=== PATIENT | male | born 1970 | race Caucasian/White ===

== ENCOUNTER 2018-11-22 04:38 | Emergency (ER) | payer OTHER ==
[2018-11-22] MEDS ORDERED: IPRATROPIUM/ALBUTEROL 3 ML NEB INH STA (05:19)
[2018-11-22] MEDS ORDERED: BENZONATATE 100 MG CAPSULE PO STA (05:19)
[2018-11-22] MEDS ORDERED: DEXAMETHASONE 10 MG/ML VIAL PO STA (05:19)
[2018-11-22] MEDS ORDERED: ACETAMINOPHEN 500 MG TABLET PO STA (05:20)
--- NOTE | 2018-11-22 05:23 | ED Physician Documentation ---
History of Present Illness - Stated complaint Stated Complaint: CHEST CONGESTION,FEVER - Chief complaint Chief Complaint: General - History obtained from History obtained from: Patient - Additonal information Additional information: 48-year-old male presents the emergency department with day 3 of Body aches, nasal congestion, cough and feeling feverish. The patient smokes 1 pack of cigarettes a day and reports wheezing and general fatigue. No relieving factors. No other associated symptoms. Symptoms are described as mild. Review of Systems Constitutional: reports: Fever, Chills, Myalgias, Fatigue Eyes: denies: Discharge Ears: denies: Ear pain Nose: reports: Rhinorrhea / runny nose Throat: denies: Sore throat Cardiac: denies: Chest pain / pressure Respiratory: reports: Cough, Wheezing. denies: Dyspnea GI: denies: Abdominal Pain : denies: Dysuria Skin: denies: Rash Musculoskeletal: denies: Neck pain Neurologic: denies: Generalized weakness Immunocompromised: denies: Chemotherapy PD PAST MEDICAL HISTORY - Past Medical History Past Medical History: No Cardiovascular: None Respiratory: None Neuro: None Endocrine/Autoimmune: None GI: None : None HEENT: None Psych: None Musculoskeletal: None Derm: None - Past Surgical History Past Surgical History: Yes General: Other Ortho: Rotator cuff repair - Present Medications Home Medications: Ambulatory Orders Medication Instructions Recorded Confirmed Albuterol Sulf [Ventolin Hfa 1 - 2 puffs INH Q4HR PRN #1 inhaler 11/22/18 Inhaler] Benzonatate [Tessalon Perle] 100 - 200 mg PO TID PRN #30 capsule 11/22/18 - Allergies Allergies/Adverse Reactions: Allergies Allergy/AdvReac Type Severity Reaction Status Date / Time No Known Drug Allergies Allergy Verified 11/22/18 04:48 - Social History Does the pt smoke?: Yes Smoking Status: Current every day smoker Does the pt drink ETOH?: No Does the pt have substance abuse?: No - Immunizations Immunizations are current?: No - POLST Patient has POLST: No PD ED PE NORMAL - General General: Alert and oriented X 3, No acute distress - HEENT HEENT: Atraumatic, PERRL, EOMI, Ears normal, Moist mucous membranes - Neck Neck: Supple, no meningeal sign - Cardiac Cardiac: RRR, Strong equal pulses - Respiratory Respiratory: No respiratory distress. No: Clear bilaterally (Scattered expiratory wheezing) - Derm Derm: Normal color - Extremities Extremities: No deformity - Neuro Neuro: Alert and oriented X 3, Normal speech - Psych Psych: Normal affect Results - Vitals Vitals: Vital Signs - 24 hr 11/22/18 04:45 Temperature 37.2 C Heart Rate 109 H Respiratory 17 Rate Blood Pressure 135/82 H O2 Saturation 95 Oxygen O2 Source Room air PD MEDICAL DECISION MAKING - ED course ED course: The patient's symptoms are consistent with a viral etiology and the patient appears appropriate for discharge and ongoing outpatient management. I discussed warning signs and recommended returning for any worsening or any concerns Departure - Departure Disposition: 01 Home, Self Care Clinical Impression: Bronchitis Condition: Good Instructions: ED Upper Resp Infec No Abx Tx Ch, Bronchitis Acute Dc Prescriptions: Albuterol Sulf [Ventolin Hfa Inhaler] 1 - 2 puffs INH Q4HR PRN #1 inhaler PRN Reason: Shortness Of Air/Wheezing Benzonatate [Tessalon Perle] 100 - 200 mg PO TID PRN #30 capsule PRN Reason: Cough Comments: Please return to the ED for worsening symptoms or any concerns Please follow up with Primary care
[2018-11-22] MEDS ORDERED: CHERRY SYRUP 10 ML UDC PO ONE (05:31)
[2018-11-22 05:40] VITALS: BP 129/93
== END 2018-11-22 05:47 | disposition home or self-care (01) ==
LOC: ED 04:38
DX: J40 Bronchitis, not specified as acute or chronic (principal); F17.200 Nicotine dependence, unspecified, uncomplicated
CPT/HCPCS: 94640; 94664; 99283; A9270

== ENCOUNTER 2020-04-23 11:50 | Outpatient (CLI) | payer OTHER | END 2020-04-23 11:51 | disposition critical access hospital (66) | LOC: EMS 11:50 | PROVIDERS: ATTEND Surgery | DX: R10.31 Right lower quadrant pain (principal) | CPT/HCPCS: A0425; A0429 ==

== ENCOUNTER 2020-04-23 12:08 | Emergency (ER) | payer OTHER ==
--- NOTE | 2020-04-23 12:52 | ED Physician Documentation ---
History of Present Illness - Stated complaint Stated Complaint: ABD PAIN - Chief complaint Chief Complaint: Abd Pain - History obtained from History obtained from: Patient, EMS - History of Present Illness Timing: Today Pain level max: 8 Pain level now: 2 - Additonal information Additional information: 49-year-old male presents to the emergency department with lower abdominal pain today, mainly in the right lower quadrant. Worse with movement and better with rest. No recent trauma. No injuries. Mild nausea but no vomiting. No diarrhea or constipation. Has never had similar symptoms. No fevers. No recent antibiotics or recent travel. Review of Systems Constitutional: denies: Fever, Chills Respiratory: denies: Cough GI: denies: Vomiting Skin: denies: Rash Musculoskeletal: denies: Neck pain, Back pain Neurologic: denies: Headache PD PAST MEDICAL HISTORY - Past Medical History Past Medical History: Yes Cardiovascular: None Respiratory: None Neuro: None Endocrine/Autoimmune: None GI: None : None HEENT: None Psych: None Musculoskeletal: None Derm: None - Past Surgical History Past Surgical History: Yes General: Other Ortho: Rotator cuff repair - Present Medications Home Medications: Ambulatory Orders Medication Instructions Recorded Confirmed Albuterol Sulf [Ventolin Hfa 1 - 2 puffs INH Q4HR PRN #1 inhaler 11/22/18 Inhaler] Benzonatate [Tessalon Perle] 100 - 200 mg PO TID PRN #30 capsule 11/22/18 Hydrocodone/Acetaminophen 1 - 2 each PO Q6H PRN #14 tablet 04/23/20 [Hydrocodon-Acetaminophen 5-325] Ibuprofen [Motrin] 800 mg PO Q8H PRN #30 tablet 04/23/20 Ondansetron Odt [Zofran] 4 mg TL Q6H PRN #10 tablet 04/23/20 Tamsulosin [Flomax] 0.4 mg PO DAILY #14 capsule 04/23/20 - Allergies Allergies/Adverse Reactions: Allergies Allergy/AdvReac Type Severity Reaction Status Date / Time No Known Drug Allergies Allergy Verified 11/22/18 04:48 - Social History Does the pt smoke?: Yes Smoking Status: Current every day smoker Does the pt drink ETOH?: No Does the pt have substance abuse?: No - Immunizations Immunizations are current?: No - POLST Patient has POLST: No PD ED PE NORMAL - Vitals Vital signs reviewed: Yes - General General: Alert and oriented X 3, No acute distress - HEENT HEENT: Moist mucous membranes - Neck Neck: Supple, no meningeal sign - Cardiac Cardiac: RRR - Respiratory Respiratory: No respiratory distress, Clear bilaterally - Abdomen Abdomen: Soft, Non distended, Other (Tender to palpation right lower quadrant and suprapubic. No peritoneal signs.) - Back Back: No CVA TTP, No spinal TTP - Derm Derm: Warm and dry - Extremities Extremities: No edema, No calf tenderness / cord - Neuro Neuro: Alert and oriented X 3 - Psych Psych: Normal mood, Normal affect Results - Vitals Vitals: Vital Signs - 24 hr 04/23/20 04/23/20 04/23/20 12:12 14:05 16:00 Temperature 36.6 C Heart Rate 81 113 H 75 Respiratory 18 24 23 Rate Blood Pressure 161/115 H 170/115 H 178/104 H O2 Saturation 96 94 96 Oxygen O2 Source Room air - Labs Labs: Laboratory Tests 04/23/20 04/23/20 04/23/20 12:50 12:55 12:55 WBC 11.3 H RBC 5.49 Hgb 16.2 Hct 47.4 MCV 86.3 MCH 29.5 MCHC 34.2 RDW 13.2 Plt Count 188 MPV 11.3 Neut # (Auto) 9.0 H Lymph # (Auto) 1.4 L [place] # (Auto) 0.7 Eos # (Auto) 0.1 Baso # (Auto) 0.1 Absolute Nucleated RBC 0.00 Nucleated RBC % 0.0 Sodium 135 Potassium 3.8 Chloride 102 Carbon Dioxide 24 Anion Gap 9.0 BUN 17 Creatinine 1.1 Estimated GFR (MDRD) 71 L Glucose 152 H Calcium 9.2 Total Bilirubin 0.5 AST 19 ALT 16 Alkaline Phosphatase 78 Total Protein 6.9 Albumin 3.9 Globulin 3.0 Albumin/Globulin Ratio 1.3 Lipase 29 Urine Color YELLOW Urine Clarity CLEAR Urine pH 5.5 Ur Specific [place] 1.025 Urine Protein NEGATIVE Urine Glucose (UA) NEGATIVE Urine Ketones NEGATIVE Urine Occult Blood LARGE H Urine Nitrite NEGATIVE Urine Bilirubin NEGATIVE Urine Urobilinogen 0.2 (NORMAL) Ur Leukocyte Esterase NEGATIVE Urine RBC 11-25 H Urine WBC 0-3 Ur Squamous Epith Cells NONE SEEN Urine Crystals 0-2 Calcium Oxalate Urine Bacteria Few Ur Microscopic Review INDICATED Urine Culture Comments NOT INDICATED - Rads (name of study) CT abd/pelvis Radiology: Prelim report reviewed, EMP read contemporaneously, See rad report RUQ US Radiology: Prelim report reviewed, EMP read contemporaneously, See rad report PD MEDICAL DECISION MAKING - ED course Complexity details: reviewed results, re-evaluated patient, considered differential, d/w patient ED course: 49-year-old male with a right ureteral stone. Declines pain medication here. Will prescribe pain medication and Flomax for home. Abnormal gallbladder on CT scan, therefore ultrasound was performed. He will follow-up with his doctor for further care. Patient is well-appearing, nontoxic. Afebrile. No evidence of sepsis. No evidence of infected stone. Patient counseled regarding signs and symptoms for which I believe and urgent re-evaluation would be necessary. Patient with good understanding of and agreement to plan and is comfortable going home at this time This document was made in part using voice recognition software. While efforts are made to proofread this document, sound alike and grammatical errors may occur. CT A/P 1. Small 3 mm obstructing stone in the proximal right ureter with associated mild right hydronephrosis. 2. Additional small nonobstructing left renal stones. 3. Partially calcified masslike filling defect in the gallbladder fundus. The findings are suspicious for gallbladder carcinoma versus clustered calcified and noncalcified gallstones. The associated mild wall thickening and stricture in the mid gallbladder may reflect an intramural mass versus sequelae of a chronic inflammatory process. Recommend initial further evaluation with ultrasound to assess for possible vascularity within the masslike filling defect. Surgical consultation is also recommended. 4. No evidence of appendicitis. Colonic diverticulosis without acute diverticulitis. RUQ US 1. Contracted gallbladder with multiple gallstones and thickened gallbladder wal l. No other sonographic findings for acute cholecystitis. No vascularity identified in the gallbladder. Findings may represent sequela of chronic cholecystitis. A soft tissue mass is not appreciated on sonographic evaluation. Consider further evaluation with nuclear medicine bone scan. 2. Findings compatible with hepatic steatosis versus chronic hepatocellular disease. Departure - Departure Disposition: 01 Home, Self Care Clinical Impression: Ureteral stone Condition: Good Instructions: ED Stone Renal W Colic Follow-Up: your,doctor in 1 week [Other] Prescriptions: Tamsulosin [Flomax] 0.4 mg PO DAILY #14 capsule Hydrocodone/Acetaminophen [Hydrocodon-Acetaminophen 5-325] 1 - 2 each PO Q6H PRN #14 tablet PRN Reason: pain Ibuprofen [Motrin] 800 mg PO Q8H PRN #30 tablet PRN Reason: PAIN &/OR FEVER Ondansetron Odt [Zofran] 4 mg TL Q6H PRN #10 tablet PRN Reason: Nausea / Vomiting Comments: You should follow-up with your doctor within 1 week. Return if you worsen. The kidney stone should pass. Return for pain that is not controlled, vomiting and/or fever. CT Abdomen/Pelvis 1. Small 3 mm obstructing stone in the proximal right ureter with associated mild right hydronephrosis. 2. Additional small nonobstructing left renal stones. 3. Partially calcified masslike filling defect in the gallbladder fundus. The findings are suspicious for gallbladder carcinoma versus clustered calcified and noncalcified gallstones. The associated mild wall thickening and stricture in the mid gallbladder may reflect an intramural mass versus sequelae of a chronic inflammatory process. Recommend initial further evaluation with ultrasound to assess for possible vascularity within the masslike filling defect. Surgical consultation is also recommended. 4. No evidence of appendicitis. Colonic diverticulosis without acute diverticulitis. Abdomen Ultrasound 1. Contracted gallbladder with multiple gallstones and thickened gallbladder wall. No other sonographic findings for acute cholecystitis. No vascularity identified in the gallbladder. Findings may represent sequela of chronic cholecystitis. A soft tissue mass is not appreciated on sonographic evaluation. Consider further evaluation with nuclear medicine bone scan. 2. Findings compatible with hepatic steatosis versus chronic hepatocellular disease. Discharge Date/Time: 04/23/20 16:55
[2020-04-23 13:04] LABS: BASOPHILS # (AUTO) 0.1 10^3/uL (0.0-0.1); BASOPHILS % (AUTO) 0.6 %; EOSINOPHILS # (AUTO) 0.1 10^3/uL (0.0-0.7); HGB - HEMOGLOBIN 16.2 g/dL (14.0-18.0); LYMPHOCYTES # (AUTO) 1.4 10^3/uL (1.5-3.5); MEAN CORPUSCULAR HEMOGLOBIN 29.5 pg (27.0-31.0); MEAN CORPUSCULAR HGB CONC 34.2 g/dL (32.0-36.0); MEAN CORPUSCULAR VOLUME 86.3 fL (80.0-94.0); MEAN PLATELET VOLUME 11.3 fL (7.4-11.4); MONOCYTES # (AUTO) 0.7 10^3/uL (0.0-1.0); MONOCYTES % (AUTO) 6.5 %; NEUTROPHILS % (AUTO) 79.5 %; PLT - PLATELET COUNT 188 10^3/uL (130-450); RED BLOOD COUNT 5.49 10^6/uL (4.70-6.10); RED CELL DISTRIBUTION WIDTH 13.2 % (12.0-15.0); WHITE BLOOD COUNT 11.3 x10^3/uL (4.8-10.8)
[2020-04-23 13:05] LABS: BILIRUBIN,URINE NEGATIVE (NEGATIVE); GLUCOSE, URINE (UA) NEGATIVE (NEGATIVE); KETONES,URINE (UA) NEGATIVE (NEGATIVE); LEUKOCYTE ESTERASE, URINE NEGATIVE (NEGATIVE); NITRITE,URINE NEGATIVE (NEGATIVE); OCCULT BLOOD,URINE LARGE (NEGATIVE); PH,URINE 5.5 PH (5.0-7.5); PROTEIN,URINE NEGATIVE (NEGATIVE); UROBILINOGEN,URINE 0.2 (NORMAL) E.U./dL (NORMAL)
[2020-04-23] MEDS ORDERED: IOVERSOL 320 100 ML VIAL IVP ONE ×2 (13:07→13:58)
[2020-04-23 13:15] LABS: CLARITY,URINE CLEAR (CLEAR)
[2020-04-23 13:19] LABS: ALBUMIN 3.9 g/dL (3.2-5.5); ALBUMIN/GLOBULIN RATIO 1.3 (1.0-2.2); BILIRUBIN,TOTAL 0.5 mg/dL (0.2-1.0); CALCIUM 9.2 mg/dL (8.5-10.3); CREATININE 1.1 mg/dL (0.6-1.2); TOTAL PROTEIN 6.9 g/dL (6.7-8.2)
[2020-04-23 13:28] LABS: BACTERIA,URINE Few /HPF (None Seen); SQUAMOUS EPITHELIAL CELL,UR NONE SEEN (<= Few)
[2020-04-23 13:29] LABS: CRYSTALS,URINE 0-2 Calcium Oxalate /LPF
--- NOTE | 2020-04-23 14:17 | CT Report ---
PROCEDURE: Abdomen/Pelvis W INDICATIONS: RLQ abd pain CONTRAST: IV CONTRAST: Optiray 320 ml: 100 PO CONTRAST: *NO PO CONTRAST TECHNIQUE: After the administration of oral and intravenous contrast, 5 mm thick sections acquired from the diap hragms to the symphysis. 5 mm thick coronal and sagittal reformats were acquired. For radiation dos e reduction, the following was used: automated exposure control, adjustment of mA and/or kV accordin g to patient size. COMPARISON: None. FINDINGS: Image quality: Excellent. ABDOMEN: Lung bases: There are patchy ground glass opacities within the visualized lung bases. Heart size is n ormal. Solid organs: Evaluation of the liver demonstrates no focal hepatic lesions. There is a partially raeann cified filling defect within the gallbladder fundus measuring up to 2.2 x 2.0 x 2.4 cm. There is mild associated gallbladder wall thickening as well as segmental narrowing in the mid gallbladder suggest loyda of a stricture or an intramural mass. Biliary system is non dilated. Pancreas enhances normally. No adrenal nodules. There is a small obstructing stone within the proximal right ureter measuring up to 3 mm with mild ri ght hydronephrosis. There is associated mild perinephric and periureteral fat stranding. No additiona l discrete right renal stones identified. There are at least 2 small nonobstructing left renal stones , measuring up to 3 mm. There is a posterior exophytic cyst in the right kidney and a small hypodensi ty in the left kidney likely representing a cyst. Peritoneum and bowel: Bowel loops demonstrate normal wall thickness and caliber. The appendix is nor mal in appearance. There is colonic diverticulosis without acute diverticulitis. No free fluid or air . Nodes and vessels: No retroperitoneal or mesenteric adenopathy by size criteria. Aorta and inferior vena cava are normal in size. Miscellaneous: No ventral hernias. PELVIS: Genitourinary: Bladder wall thickness is normal. Miscellaneous: No inguinal hernias or adenopathy. Bones: No suspicious bony lesions. No vertebral body compression fractures. IMPRESSION: 1. Small 3 mm obstructing stone in the proximal right ureter with associated mild right hydronephrosi s. 2. Additional small nonobstructing left renal stones. 3. Partially calcified masslike filling defect in the gallbladder fundus. The findings are suspicious for gallbladder carcinoma versus clustered calcified and noncalcified gallstones. The associated mil d wall thickening and stricture in the mid gallbladder may reflect an intramural mass versus sequelae of a chronic inflammatory process. Recommend initial further evaluation with ultrasound to assess fo r possible vascularity within the masslike filling defect. Surgical consultation is also recommended. 4. No evidence of appendicitis. Colonic diverticulosis without acute diverticulitis. Reviewed by: Jhon Garay MD on 04/23/2020 2:16 PM PDT Approved by: Jhon Garay MD on 04/23/2020 2:16 PM PDT Station ID: [id number]
--- NOTE | 2020-04-23 16:23 | Ultrasound Report ---
FINDINGS: PROCEDURE: Abdomen Limited INDICATIONS: abnormal GB on CT TECHNIQUE: Real-time scanning was performed of the abdominal and retroperitoneal organs, with image documentatio n. COMPARISON: CT abdomen and pelvis from earlier same day. FINDINGS: Liver: Liver is diffusely echogenic in echotexture without focal intrahepatic masses. Gallbladder: The gallbladder appears to be contracted with multiple gallstones. Wall thickness measur es 5 mm. No vascularity identified. Biliary ducts: Intrahepatic bile ducts are non-dilated. Extrahepatic bile duct caliber measures 8 m m. Normal is 6-7 mm or less in diameter, or 10 mm or less post-cholecystectomy. Pancreas: Pancreas is not well-visualized. Kidneys: Right kidney is normal in size and echotexture. Right kidney measures 12.3 cm long. No hyd ronephrosis or nephrolithiasis. No solid masses. IMPRESSION: 1. Contracted gallbladder with multiple gallstones and thickened gallbladder wall. No other sonograph ic findings for acute cholecystitis. No vascularity identified in the gallbladder. Findings may repre sent sequela of chronic cholecystitis. A soft tissue mass is not appreciated on sonographic evaluatio n. Consider further evaluation with nuclear medicine bone scan. 2. Findings compatible with hepatic steatosis versus chronic hepatocellular disease. Reviewed by: Gold Kinney MD on 04/23/2020 4:21 PM PDT Approved by: Gold Kinney MD on 04/23/2020 4:21 PM PDT Station ID: [id number]
[2020-04-23 16:34] VITALS: BP 178/104
== END 2020-04-23 16:55 | disposition home or self-care (01) ==
LOC: EDUNIT# → ED 12:08
DX: N13.2 Hydronephrosis with renal and ureteral calculous obstruction (principal); R93.89 Abnormal findings on diagnostic imaging of other specified body structures; F17.200 Nicotine dependence, unspecified, uncomplicated
CPT/HCPCS: 36415; 74177; 76705; 80053; 81001; 83690; 85025; 99284; Q9967; 81003; 87086

== ENCOUNTER 2021-01-30 15:49 | Emergency (ER) | payer OTHER ==
--- NOTE | 2021-01-30 16:24 | ED Physician Documentation ---
PD HPI LOWER EXT INJURY - Stated complaint Stated Complaint: RT LEG PX - Chief complaint Chief Complaint: Ext Problem - History obtained from History obtained from: Patient - Additional information Additional information: Had [employer] Covid vaccine a little over 2 weeks ago and a little less than 2 weeks ago developed some distal right calf pain and was referred here for further evaluation and treatment. Denies history of DVT or PE. No health problems. Review of Systems Constitutional: denies: Fever, Chills Throat: reports: Reviewed and negative Cardiac: reports: Reviewed and negative Respiratory: reports: Reviewed and negative PD PAST MEDICAL HISTORY - Past Medical History Cardiovascular: None Respiratory: None Neuro: None Endocrine/Autoimmune: None GI: None : None HEENT: None Psych: None Musculoskeletal: None Derm: None - Past Surgical History Past Surgical History: Yes General: Other Ortho: Rotator cuff repair - Present Medications Home Medications: Ambulatory Orders Medication Instructions Recorded Confirmed Albuterol Sulf [Ventolin Hfa 1 - 2 puffs INH Q4HR PRN #1 inhaler 11/22/18 Inhaler] Benzonatate [Tessalon Perle] 100 - 200 mg PO TID PRN #30 capsule 11/22/18 Hydrocodone/Acetaminophen 1 - 2 each PO Q6H PRN #14 tablet 04/23/20 [Hydrocodon-Acetaminophen 5-325] Ibuprofen [Motrin] 800 mg PO Q8H PRN #30 tablet 04/23/20 Ondansetron Odt [Zofran] 4 mg TL Q6H PRN #10 tablet 04/23/20 Tamsulosin [Flomax] 0.4 mg PO DAILY #14 capsule 04/23/20 - Allergies Allergies/Adverse Reactions: Allergies Allergy/AdvReac Type Severity Reaction Status Date / Time No Known Drug Allergies Allergy Verified 01/30/21 16:01 - Social History Does the pt smoke?: Yes Smoking Status: Current every day smoker Does the pt drink ETOH?: No Does the pt have substance abuse?: No - Immunizations Immunizations are current?: No - POLST Patient has POLST: No PD ED PE NORMAL - Vitals Vital signs reviewed: Yes - General General: Alert and oriented X 3, No acute distress - Extremities Extremities: Other (Mild muscular tenderness of the distal lateral calf, Achilles function is normal. Negative Homans' sign. No edema.) - Neuro Neuro: Alert and oriented X 3, Normal speech Results - Vitals Vitals: Vital Signs - 24 hr 01/30/21 01/30/21 16:02 19:10 Temperature 36.5 C 36.5 C Heart Rate 99 88 Respiratory 16 16 Rate Blood Pressure 150/100 H 130/90 H O2 Saturation 96 98 Oxygen O2 Source Room air - Rads (name of study) ANGI beebe Radiology: Final report received (no DVT) Departure - Departure Disposition: 01 Home, Self Care Clinical Impression: Pain of lower extremity Qualifiers: Laterality: right Qualified Code(s): M79.604 - Pain in right leg Condition: Good Record reviewed to determine appropriate education?: Yes Instructions: ED Strain Muscle Ext Comments: You are seen in the emergency department for pain in your leg. Your ultrasound did not show any evidence of blood clot. Please follow-up with your primary doctor in 1 week for a follow-up ultrasound. Return to the emergency department if you experience any new or worsening symptoms or have other concerns. Discharge Date/Time: 01/30/21 19:10
--- NOTE | 2021-01-30 19:03 | Ultrasound Report ---
PROCEDURE: Duplex Ext Veins Right INDICATIONS: RLE pain TECHNIQUE: Real-time imaging, as well as color and pulse Doppler interrogation, were performed of the lower extr emity deep veins from the inguinal ligament to the popliteal fossa. COMPARISON: None. FINDINGS: The deep veins are normally compressible, and free of intraluminal thrombus. Color and pu lse Doppler demonstrate normal phasic intraluminal flow. There is normal augmentation response to di stal compression maneuver. IMPRESSION: No evidence of right lower extremity DVT. Reviewed by: Amish Connelly MD on 01/30/2021 7:01 PM PDT Approved by: Amish Connelly MD on 01/30/2021 7:01 PM PDT Station ID: [id number]
[2021-01-30 19:11] VITALS: BP 130/90
== END 2021-01-30 19:10 | disposition home or self-care (01) ==
LOC: ED 15:49
DX: M79.661 Pain in right lower leg (principal); F17.200 Nicotine dependence, unspecified, uncomplicated
CPT/HCPCS: 99282; 99284

== ENCOUNTER 2022-04-21 15:40 | Emergency (ER) | payer OTHER ==
[2022-04-21] MEDS ORDERED: NIRMATRELVIR/RITONAVIR PREPACK PO STA (20:00)
--- NOTE | 2022-04-21 20:01 | ED Physician Documentation ---
History of Present Illness - Stated complaint Stated Complaint: CHILLS/MUSCLE PAIN - Chief complaint Chief Complaint: General - History obtained from History obtained from: Patient - History of Present Illness Timing: Last night Pain level max: 0 Pain level now: 0 - Additonal information Additional information: Patient is a 51-year-old male who presents to the emergency department stating he started having fevers, chills and coughing last night. Worsening today. Concerned about potential COVID. He states his work told him to come here for a work note. He has been COVID vaccinated. Does not take any medications at home. He does smoke. Review of Systems Constitutional: reports: Fever, Chills Nose: reports: Rhinorrhea / runny nose, Congestion Respiratory: reports: Cough. denies: Dyspnea, Wheezing GI: denies: Vomiting Skin: denies: Rash PD PAST MEDICAL HISTORY - Past Medical History Past Medical History: No Cardiovascular: None Respiratory: None Neuro: None Endocrine/Autoimmune: None GI: None : None HEENT: None Psych: None Musculoskeletal: None Derm: None - Past Surgical History Past Surgical History: Yes General: Other Ortho: Rotator cuff repair - Present Medications Home Medications: Ambulatory Orders Medication Instructions Recorded Confirmed No Known Home Medications 04/21/22 04/21/22 - Allergies Allergies/Adverse Reactions: Allergies Allergy/AdvReac Type Severity Reaction Status Date / Time No Known Drug Allergies Allergy Verified 04/21/22 16:11 - Social History Does the pt smoke?: Yes Smoking Status: Current every day smoker Does the pt drink ETOH?: No Does the pt have substance abuse?: No - Immunizations Immunizations are current?: No - POLST Patient has POLST: No PD ED PE NORMAL - Vitals Vital signs reviewed: Yes - General General: Alert and oriented X 3, No acute distress - HEENT HEENT: PERRL, Ears normal, Moist mucous membranes, Pharynx benign - Neck Neck: Supple, no meningeal sign - Cardiac Cardiac: RRR - Respiratory Respiratory: No respiratory distress, Clear bilaterally - Abdomen Abdomen: Soft, Non tender, Non distended - Derm Derm: Warm and dry, No rash - Extremities Extremities: No edema - Neuro Neuro: Alert and oriented X 3 - Psych Psych: Normal mood, Normal affect Results - Vitals Vitals: Vital Signs - 24 hr 04/21/22 04/21/22 16:11 20:10 Temperature 38.1 C H 38.1 C H Heart Rate 110 H 96 Respiratory 20 18 Rate Blood Pressure 156/105 H 156/83 H O2 Saturation 96 98 Oxygen O2 Source Room air - Labs Labs: Laboratory Tests 04/21/22 16:18 SARS-CoV-2 (PCR) DETECTED A PD MEDICAL DECISION MAKING - ED course Complexity details: reviewed results, re-evaluated patient, considered differential, d/w patient ED course: Patient is positive for Covid. Patient as well appearing, non-toxic. No hypoxia. No respiratory distress. He would like to take antiviral medication. Paxlovid will be prescribed for him. Patient counseled regarding signs and symptoms for which I believe an urgent reevaluation would be needed. Patient is comfortable going home at this time. Departure - Departure Disposition: Home, Self Care Clinical Impression: COVID-19 Condition: Good Instructions: ED Viral Syndrome Follow-Up: your,doctor in 1week [Other] Comments: Drink plenty of fluids and rest. Follow-up with your doctor for further care. Return if you worsen. Take the Paxlovid as prescribed. Isolation precautions for COVID Day 0 is your first day of symptoms or a positive viral test. Day 1 is the first full day after your symptoms developed or your test specimen was collected. If you have COVID-19 or have symptoms, isolate for at least 5 days. IF YOU: Tested positive for COVID-19 or have symptoms, regardless of vaccination status Stay home for at least 5 days Stay home for 5 days and isolate from others in your home. Wear a well-fitting mask if you must be around others in your home. Do not travel. Ending isolation if you had symptoms End isolation after 5 full days if you are fever-free for 24 hours (without the use of fever-reducing medication) and your symptoms are improving. Ending isolation if you did NOT have symptoms End isolation after at least 5 full days after your positive test. If you got very sick from COVID-19 or have a weakened immune system You should isolate for at least 10 days. Consult your doctor before ending isolation. Take precautions until day 10 Wear a well-fitting mask Wear a well-fitting mask for 10 full days any time you are around others inside your home or in public. Do not go to places where you are unable to wear a mask. Do not travel Do not travel until a full 10 days after your symptoms started or the date your positive test was taken if you had no symptoms. Avoid being around people who are more likely to get very sick from COVID-19. Forms: Activity restrictions Discharge Date/Time: 04/21/22 20:10
[2022-04-21 20:12] VITALS: BP 156/83
== END 2022-04-21 20:10 | disposition home or self-care (01) ==
LOC: ED 15:40
DX: U07.1 COVID-19 (principal); F17.200 Nicotine dependence, unspecified, uncomplicated
CPT/HCPCS: 87635; 99282; 99283; J3490